=== PATIENT | female | born 1945 | race Caucasian/White ===

== ENCOUNTER 2020-12-02 17:51 | Inpatient (IN) | payer MEDICARE ==
[~2020-12-02] VITALS: Ht 162.6 cm; Wt 81.2 kg
[~2020-12-02 17:51] MED LIST: ACET-709 PO; APIX5TAB PO; CARV-39 PO; FLEC50TA25 PO; GABA300C10 PO; GLIP2.5T3 PO; METF500T17 PO; PARO20TA98 PO
--- NOTE | 2020-12-02 18:25 | NUR ---
PT PRESENTS TO ED WITH C/O N/V SINCE YESTERDAY. STATES PT HAS HX OF IBS AND AFIB. PT NOT ACTIVELY VOMITTING BUT FEELING NAUSEOUS. PT ALSO STATES UO HAS BEEN MINIMAL AND CONCENTRATED OF TODAY. PT A&O, RESPS EVEN AND UNLABORED, ALL MONITORS ATTACHED, TACHY WITH AFIB, OTHER VSS. CLAUDE MOYA AT BEDSIDE FOR EVAL.
[2020-12-02] MEDS ORDERED: ONDANSETRON 2MG/ML, 2ML ONE (18:26)
[2020-12-02] MEDS ORDERED: DILTIAZEM 5 MG/ML, 5ML ONE (18:34)
[2020-12-02 18:43] LABS: BASOPHILS % (AUTO) 0 % (0-1); EOSINOPHILS % (AUTO) 1 % (1-7); LYMPHOCYTES % (AUTO) 3 % (22-44); MEAN CORPUSCULAR HEMOGLOBIN 32.5 pg (27.0-34.8); MEAN CORPUSCULAR HGB CONC 34.7 g/dL (32.4-35.8); MEAN PLATELET VOLUME 9.7 fL (7.4-10.4); MONOCYTES % (AUTO) 10 % (2-9); NEUTROPHILS % (AUTO) 86 % (42-75); PLATELET COUNT 207 x10^3/uL (130-400); RED BLOOD COUNT 5.11 x10^6/uL (3.82-5.3); RED CELL DISTRIBUTION WIDTH 13.2 % (9.6-15.2)
[2020-12-02 18:50] LABS: ALANINE AMINOTRANSFERASE 538 U/L (12-78); ANION GAP 12 mmol/L (5-15); CALCIUM 8.6 mg/dL (8.5-10.1); CHLORIDE 96 mmol/L (98-107); CREATININE 1.03 mg/dL (0.55-1.02)
--- NOTE | 2020-12-02 18:50 | NUR ---
PRECEPTOR RN NOTE: DILTIAZEM GTT REQUESTED FROM PHARMACY.
[2020-12-02 18:53] LABS: ALKALINE PHOSPHATASE 131 U/L (45-117); BILIRUBIN,TOTAL 4.6 mg/dL (0.2-1.0); TOTAL PROTEIN 6.9 g/dL (6.4-8.2)
--- NOTE | 2020-12-02 18:54 | NUR ---
REPORT GIVEN TO EVAN MEAD
[2020-12-02] MEDS ORDERED: SODIUM CHLORIDE 0.9% 1,000ML IVBOLUS ONE (19:00)
[2020-12-02] MEDS ORDERED: DILTIAZEM 5 MG/ML, 5ML IV ONE (19:00)
[2020-12-02] MEDS ORDERED: DILTIAZEM 125 MG in SODIUM CHLORIDE 0.9% 100 ML IV SCH (19:00)
[2020-12-02] MEDS ORDERED: ONDANSETRON 2MG/ML, 2ML IVPush ONE (19:00)
[2020-12-02] MEDS ORDERED: SODIUM CHLORIDE FLUSH 10ML SYR IVF ONE (19:00)
--- NOTE | 2020-12-02 19:04 | NUR ---
PRECEPTOR RN NOTE: REPORT GIVEN TO RN'S EVAN AND TONI, DILTIAZEM 10MG PUSHED SLOWLY OVER 5 MIN BY RN YUKI, CHARTED BY THIS RN BY PROXY. PT IS A&O, RESPS EVEN AND UNLABORED, NOW CONVERTED TO NORMAL SINUS RHYTHM RATE 70-80'S WITH NO ECTOPY. PT REPORTS "I FEEL SO MUCH BETTER." CALL LIGHT IN REACH. ALL MONITORS IN PLACE .
--- NOTE | 2020-12-02 19:11 | NUR ---
REPORT RECEIVED FROM ALYCE MIRZA AND ALYCE MOY
--- NOTE | 2020-12-02 19:30 | NUR ---
THIS RN STRAIGHT CATHED PT FOR UA, PT TOLERATED PROCEDURE WELL, RESTING ON GURNEY, DENIES NEEDS AT THIS TIME.
[2020-12-02 19:35] LABS: MICROSCOPIC NOT IND
--- NOTE | 2020-12-02 19:45 | NUR ---
MED REC COMPLETE WITH PT. DENIES NEEDS AT THIS TIME.
--- NOTE | 2020-12-02 20:12 | NUR ---
PT RESTING COMFORTABLY ON GURNEY, DENIES ANY NEEDS AT THIS TIME.
--- NOTE | 2020-12-02 20:54 | NUR ---
PRECEPTOR RN: PER ERP, DR. MOYA. STOP DILTIAZEM INFUSION. PT NOW IN NORMAL SINUS RHYTHM, EKG COMPLETE AND INFUSION STOPPED, SEE EMAR. NO ADDITIONAL NEEDS OR CHANGES AT THIS TIME. CONTINUOUS MONITORING REMAINS IN PLACE.
[2020-12-02] MEDS ORDERED: CEFOTETAN PMX 1GM/50ML 50 ML IV ONE (21:00)
--- NOTE | 2020-12-02 21:02 | NUR ---
20 G IV STARTED TO LEFT AC. PT TOLERATED IV START WELL.
--- NOTE | 2020-12-02 21:19 | NUR ---
Pt to be admitted to [facility], room 403-2. Report called to
--- NOTE | 2020-12-02 21:26 | NUR ---
PRECEPTOR RN: PT TO CT.
[2020-12-02] MEDS ORDERED: ONDANSETRON 2MG/ML, 2ML IVPush PRN (21:30)
[2020-12-02] MEDS ORDERED: BISACODYL 10 MG SUPP PR PRN (21:30)
[2020-12-02] MEDS ORDERED: morphine SULFATE 10 MG/ML, 1ML IVPush PRN (21:30)
[2020-12-02] MEDS ORDERED: POLYETHYLENE GLYCOL 17 GM PACKET PO PRN (21:30)
[2020-12-02] MEDS ORDERED: OMNIPAQUE 350 MG/ML, 100ML BOTTLE ONE (21:36)
[2020-12-02 21:45] VITALS: BP 135/68
[2020-12-02] MEDS: SODIUM CHLORIDE 0.9% 1,000 ML IV SCH (22:15)
[2020-12-02] MEDS: metFORMIN 500 MG TABLET PO SCH (22:15)
[2020-12-02] MEDS ORDERED: ALUMINUM/MAG/SIMETHICONE 30 ML UDC PO PRN (23:30)
[2020-12-02] MEDS: TEMAZEPAM 15 MG CAPSULE PO PRN (23:40)
[2020-12-03 00:22] VITALS: BP 118/71
[2020-12-03] MEDS: SODIUM CHLORIDE 0.9% 1,000 ML IV SCH (05:16)
[2020-12-03 05:54] LABS: BASOPHILS % (AUTO) 1 % (0-1); EOSINOPHILS % (AUTO) 2 % (1-7); LYMPHOCYTES % (AUTO) 6 % (22-44); MEAN CORPUSCULAR HEMOGLOBIN 32.3 pg (27.0-34.8); MEAN CORPUSCULAR HGB CONC 34.4 g/dL (32.4-35.8); MEAN PLATELET VOLUME 9.3 fL (7.4-10.4); MONOCYTES % (AUTO) 10 % (2-9); NEUTROPHILS % (AUTO) 82 % (42-75); PLATELET COUNT 182 x10^3/uL (130-400); RED BLOOD COUNT 4.31 x10^6/uL (3.82-5.3); RED CELL DISTRIBUTION WIDTH 12.7 % (9.6-15.2)
[2020-12-03 06:10] LABS: ALBUMIN 2.6 g/dL (3.4-5.0); CHLORIDE 103 mmol/L (98-107)
[2020-12-03 06:15] LABS: ALANINE AMINOTRANSFERASE 416 U/L (12-78); ALKALINE PHOSPHATASE 107 U/L (45-117); ANION GAP 7 mmol/L (5-15); BILIRUBIN,TOTAL 2.4 mg/dL (0.2-1.0); CREATININE 0.82 mg/dL (0.55-1.02); TOTAL PROTEIN 5.9 g/dL (6.4-8.2)
[2020-12-03 06:39] VITALS: BP 146/75
[2020-12-03] MEDS: GLIPizide ER 2.5 MG TABLET PO SCH (10:10)
[2020-12-03] MEDS: CARVEDILOL 25 MG TABLET PO SCH (10:10)
[2020-12-03] MEDS: SENNA/DOCUSATE TABLET PO SCH (10:11)
[2020-12-03] MEDS: PAROXETINE 20 MG TABLET PO SCH (10:11)
[2020-12-03] MEDS: FLECAINIDE 50MG TABLET PO SCH ×2 (10:11→20:20)
[2020-12-03] MEDS: metFORMIN 500 MG TABLET PO SCH ×2 (10:11→20:20)
[2020-12-03 13:39] VITALS: BP 115/65
[2020-12-03] MEDS: NS + 20MEQ KCL 1,000 ML IV SCH ×2 (15:46→21:55)
[2020-12-03 18:36] VITALS: BP 129/73
[2020-12-03] MEDS: APIXABAN 5 MG TABLET PO SCH (20:21)
[2020-12-03] MEDS: TEMAZEPAM 15 MG CAPSULE PO PRN (21:54)
[2020-12-04 00:37] VITALS: BP 138/79
[2020-12-04] MEDS: NS + 20MEQ KCL 1,000 ML IV SCH ×2 (05:00→13:00)
[2020-12-04 05:53] LABS: CHLORIDE 109 mmol/L (98-107)
[2020-12-04 06:01] LABS: ALANINE AMINOTRANSFERASE 389 U/L (12-78); ALBUMIN 2.6 g/dL (3.4-5.0); ALKALINE PHOSPHATASE 117 U/L (45-117); ANION GAP 10 mmol/L (5-15); BILIRUBIN,TOTAL 1.3 mg/dL (0.2-1.0); CALCIUM 8.2 mg/dL (8.5-10.1); CREATININE 0.62 mg/dL (0.55-1.02)
[2020-12-04 06:35] VITALS: BP 147/76
[2020-12-04] MEDS: APIXABAN 5 MG TABLET PO SCH ×2 (08:41→19:50)
[2020-12-04] MEDS: GLIPizide ER 2.5 MG TABLET PO SCH (08:41)
[2020-12-04] MEDS: PAROXETINE 20 MG TABLET PO SCH (08:41)
[2020-12-04] MEDS: metFORMIN 500 MG TABLET PO SCH ×2 (08:41→19:50)
[2020-12-04] MEDS: FLECAINIDE 50MG TABLET PO SCH ×2 (08:41→19:50)
[2020-12-04] MEDS: CARVEDILOL 25 MG TABLET PO SCH (08:41)
[2020-12-04] MEDS: SENNA/DOCUSATE TABLET PO SCH (08:42)
[2020-12-04 11:57] VITALS: BP 138/81
[2020-12-04 19:40] VITALS: BP 134/88
[2020-12-04] MEDS ORDERED: CARVEDILOL 25 MG TABLET PO ONE (20:30)
[2020-12-04] MEDS ORDERED: DILTIAZEM 5 MG/ML, 5ML IVPush ONE (21:30)
[2020-12-04] MEDS: TEMAZEPAM 15 MG CAPSULE PO PRN (21:33)
[2020-12-05] MEDS ORDERED: DILTIAZEM 5 MG/ML, 5ML IVPush ONE
[2020-12-05 00:47] VITALS: BP 102/64
[2020-12-05] MEDS: GLIPizide ER 2.5 MG TABLET PO SCH (08:36)
[2020-12-05] MEDS: SENNA/DOCUSATE TABLET PO SCH (08:36)
[2020-12-05] MEDS: FLECAINIDE 50MG TABLET PO SCH (08:36)
[2020-12-05] MEDS: PAROXETINE 20 MG TABLET PO SCH (08:36)
[2020-12-05] MEDS: CARVEDILOL 25 MG TABLET PO SCH (08:36)
[2020-12-05] MEDS: APIXABAN 5 MG TABLET PO SCH (08:36)
[2020-12-05] MEDS: metFORMIN 500 MG TABLET PO SCH (08:39)
[2020-12-05 13:00] LABS: TROPONIN I < 0.015 ng/mL (0.000-0.045)
== END 2020-12-05 15:41 | disposition home or self-care (01) | DRG 445 ==
LOC: ED 18:21 → EDIP 20:46 → 4WST 21:41
PROVIDERS: ADMIT Family Medicine; ATTEND Internal Medicine
PROC: 0T9B70Z Drainage of Bladder with Drainage Device, Via Natural or Artificial Opening (ICD-10-PCS; principal; 2020-12-02)
DX: K80.20 Calculus of gallbladder without cholecystitis without obstruction (principal); D68.69 Other thrombophilia; E87.1 Hypo-osmolality and hyponatremia; I48.20 Chronic atrial fibrillation, unspecified; I48.92 Unspecified atrial flutter; K58.0 Irritable bowel syndrome with diarrhea; J45.909 Unspecified asthma, uncomplicated; I48.0 Paroxysmal atrial fibrillation; D75.1 Secondary polycythemia; E11.65 Type 2 diabetes mellitus with hyperglycemia; E86.0 Dehydration; I10 Essential (primary) hypertension; R32 Unspecified urinary incontinence; Z86.73 Personal history of transient ischemic attack (TIA), and cerebral infarction without residual deficits; Z88.0 Allergy status to penicillin; Z88.2 Allergy status to sulfonamides; Z88.8 Allergy status to other drugs, medicaments and biological substances
CPT/HCPCS: 36415; 74177; 74181; 76700; 80053; 80074; 81003; 83036; 83690; 83735; 84484; 85025; 93005; 96361; 96374; 96375; 99291; G0378; J2405; J3480; Q9967; J7030